=== PATIENT | male | born 1985 | race Caucasian/White ===

== ENCOUNTER 2020-06-26 10:14 | Day surgery (SDC) | payer BC ==
[2020-06-26] VITALS (7 sets, daily range): BP systolic 113–143; BP diastolic 47–87; PULSE 63–79; TEMP 97.7–98.7
[~2020-06-26] VITALS: Ht 175.3 cm; Wt 164.1 kg
[2020-06-26] MEDS ORDERED: INDERAL LA 80MG80 MG PO (12:12)
[2020-06-26] MEDS ORDERED: GLUCOPHAGE500 MG/TAB PO (12:12)
[2020-06-26] MEDS ORDERED: PRIL40 PO (12:13)
--- NOTE | 2020-06-26 13:45 | NUR ---
Patient returns to room 5 per cart from radioloyg from PACU accompanied by Hannah CAR and arouses to verbal stimuli. Dressing clean and dry covering midline incision. IV fluids infusing and site is free of redness. Siderails up x2 and call light in reach. Spouse in room. Allowed to rest. Offers no complaints of pain or nausea.
--- NOTE | 2020-06-26 14:00 | NUR ---
Continues to rest and denies pain or nausea. Taking sips of water.
--- NOTE | 2020-06-26 14:15 | NUR ---
Continues to rest and offers no complaints of pain or nausea.
--- NOTE | 2020-06-26 14:30 | NUR ---
Continues to rest without complaints of pain or nausea.
--- NOTE | 2020-06-26 14:45 | NUR ---
Eating pudding and drinking water. Denies pain or nausea.
--- NOTE | 2020-06-26 15:01 | NUR ---
Medicated with Motrin 600mg po for incisional soreness.
--- NOTE | 2020-06-26 15:20 | NUR ---
IV to INT. Ambulatory to the bathroom and gait steady. Voids and returns to room. Able to dress self. Gauze dressing dry to midline abdominal incision. INT needle discontinued and site is free of redness or swelling.
--- NOTE | 2020-06-26 15:26 | NUR ---
Patient dismissed to home driven by spouse and taken to the front door per wheelchair and assisted into vehicle with dismissal instructions in hand.
== END 2020-06-26 15:26 | disposition home or self-care (01) ==
LOC: SDCO 10:14
DX: K43.9 Ventral hernia without obstruction or gangrene (principal); E11.9 Type 2 diabetes mellitus without complications; E66.01 Morbid (severe) obesity due to excess calories; I10 Essential (primary) hypertension; Z68.43 Body mass index [BMI] 50.0-59.9, adult; Z20.822 Contact with and (suspected) exposure to COVID-19; Z79.899 Other long term (current) drug therapy; Z79.84 Long term (current) use of oral hypoglycemic drugs
CPT/HCPCS: C1781; J0330; J1100; J2405; J2704; J3010; J7120